=== PATIENT | male | born 1980 | race African-American/Black ===

== ENCOUNTER 2020-04-26 19:10 | Inpatient (IN) | payer OTHER, SELFPAY ==
[2020-04-26] MEDS ORDERED: EPINEPHrine 1 MG/10 ML Abboject SYRINGE ONE (19:15)
[2020-04-26] MEDS ORDERED: Rocuronium Bromide 10 MG/ML (10ML VIAL) ONE (19:15)
[2020-04-26] MEDS ORDERED: Ketamine 50 MG/ML (10ML VIAL) ONE (19:15)
[2020-04-26] MEDS ORDERED: fentaNYL Citrate/PF 2,000 MCG in Sodium Chloride 0.9% 60 ML IV SCH (19:22)
[2020-04-26 19:23] LABS: #Eosinphils 0.1 thou/uL (0.0-0.7); #Lymphocytes 1.5 thou/uL (1.20-3.40); #Monocytes 0.5 thou/uL (0.11-0.59); #Neutrophils 6.1 thou/uL (1.40-6.50); %Basophils 0.4 % (0.0-1.0); %Eosinophils 0.9 % (0.0-10.0); %Lymphocytes 18.4 % (21.0-51.0); %Neutrophils 74.3 % (42.0-75.0); Hemoglobin 15.9 g/dL (14.0-18.0); Mean Corpuscular HGB CONC 33.3 g/dL (32.0-36.0); Mean Corpuscular Hemoglobin 29.9 pg (27.0-31.0); Mean Corpuscular Volume 89.9 fL (78.0-98.0); Mean Platelet Volume 8.6 fL (7.4-10.4); Platelet Count 191 thou/uL (130-400); RBC Distribution Width 12.5 % (11.5-14.5); Red Blood Cell (RBC) Count 5.31 mill/uL (4.70-6.10); White Blood Cell (WBC) Count 8.2 thou/uL (4.8-10.8)
[2020-04-26] MEDS ORDERED: Fentanyl 100 MCG/2 ML VIAL ONE ×2 (19:26→19:32)
[2020-04-26 19:31] LABS: Prothrombin Time 13.5 sec (12.0-14.7)
[2020-04-26 19:32] LABS: PTT 24.6 sec (22.9-36.1)
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
[2020-04-26 19:37] LABS: ALT (SGPT) 30 U/L (8-55); AST (SGOT) 52 U/L (5-34); Albumin 3.9 g/dL (3.5-5.0); Alkaline Phosphatase 98 U/L (40-110); Anion Gap 13 mmol/L (10-20); BUN (Urea Nitrogen) 7 mg/dL (8.9-20.6); Bilirubin, Total 0.7 mg/dL (0.2-1.2); Calc. Creatinine Clearance 0 mL/min (70-130); Carbon Dioxide 25 mmol/L (22-29); Chloride 101 mmol/L (98-107); Estimated GFR-MDRD Greater than 90; Globulin 3.2 g/dL (2.4-3.5); Glucose 117 mg/dL (70-105); Potassium 3.2 mmol/L (3.5-5.1); Protein, Total 7.1 g/dL (6.0-8.3); Sodium 136 mmol/L (136-145)
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
[2020-04-26 20:00] LABS: Bacteria/HPF None Seen HPF (None Seen); Bilirubin Negative (Negative); Blood, Urine Negative (Negative); Clarity Clear (Clear); Glucose, Urine (Dipstick) Normal (Negative); Ketone, Urine Trace mg/dL (Negative); Leukocyte Negative Leu/uL (Negative); Nitrite Negative (Negative); Protein, Urine (Dipstick) 30 mg/dL (Neg-Trace); RBC/HPF 0-3 HPF (0-3); Squamous Epithelial None Seen HPF (0-3); Urobilinogen 3 mg/dL (Less than 2); WBC/HPF 0-3 HPF (0-3); pH, Urine 5.5 (5.0-9.0)
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
[2020-04-26] MEDS ORDERED: Midazolam HCl 2 mg/2 ml Vial ONE (20:10)
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
[2020-04-26 20:14] LABS: Medtox Reader # READER 4; THC/Cannabinoid Screen Not Detected (NotDetected)
[2020-04-26 20:15] LABS: Phencyclidine (PCP) Detected (NotDetected)
[2020-04-26 20:16] LABS: Amphetamine Detected (NotDetected); Barbiturates Screen Not Detected (NotDetected); Benzodiazepine Screen Not Detected (NotDetected); Cocaine Metabolite Screen Not Detected (NotDetected); Medtox Control Line Valid? VALID (VALID); Methadone Not Detected (NotDetected); Methamphetamine Detected (NotDetected); Opiate Screen Not Detected (NotDetected); Oxycodone Screen Not Detected (NotDetected); Tricyclic Screen Not Detected (NotDetected)
[2020-04-26 20:16] LABS: Actual Bicarbonate (HCO3a) 26.3 mEq/L (22-28); Analyzer IN Cardio ER; Base Excess (BEa) 1.9 mEq/L (-2.0 to +3.0); CO2 Tension 40.7 mmHg (35.0-45.0); Calcium, Ionized (arterial) 1.16 mmol/L (1.12-1.30); Carboxyhemoglobin (COHb) 1.8 gm% (0.0-3.0); Hemoglobin (Hb) 15.8 g/dL (14.0-18.0); O2 Tension (PaO2), arterial 256.4 mmHg (80.0-100.0); Potassium - ABG Lab 3.11 mmol/L (3.70-5.30); pH, Arterial 7.43 (7.35-7.45)
[2020-04-26 20:18] LABS: Puncture Site LRA
[2020-04-26 20:19] LABS: ALV-art Gradient 405.725 (0-20)
[2020-04-26] MEDS ORDERED: hydrALAZINE 20 MG/ML VIAL ONE (20:23)
[2020-04-26] MEDS ORDERED: Propofol 1,000 MG/100 ML VIAL IV ONE (20:53)
[2020-04-26] MEDS ORDERED: DISCONTINUE PREVIOUS NARCOTIC PAIN MEDICATIONS AND BENZODIAZEPINES FS SCH (20:55)
[2020-04-26] MEDS ORDERED: Propofol BOLUS 1,000 MG/100 ML VIAL IV PRN (20:55)
[2020-04-26] MEDS ORDERED: Fentanyl BOLUS 250 ML IVPB PRN (20:55)
[2020-04-26] MEDS ORDERED: Morphine 2 MG/ML VIAL SLOW IVP PRN (20:55)
[2020-04-26] MEDS ORDERED: Lorazepam 2 MG/ML VIAL SLOW IVP PRN (20:55)
[2020-04-26] MEDS: Propofol 1,000 MG/100 ML VIAL IV PRN (21:00)
[2020-04-26 21:13] VITALS: BMI 29.8
[2020-04-26] MEDS ORDERED: Ondansetron ODT 4 MG TAB PO PRN (21:32)
[2020-04-26] MEDS ORDERED: Ondansetron PF 4 MG/2 ML Vial IVP PRN (21:32)
[2020-04-26] MEDS ORDERED: Dextrose 5% in Water 1,000 ML IV PRN (21:32)
[2020-04-26] MEDS ORDERED: Dextrose 50% Abboject 50 ML SYRINGE SLOW IVP PRN (21:32)
[2020-04-26] MEDS ORDERED: Ventilator Sedation Protocol 1 EACH FS SCH (21:32)
[2020-04-26] MEDS ORDERED: hydrALAZINE 20 MG/ML VIAL SLOW IVP PRN (21:43)
[2020-04-26] MEDS ORDERED: Famotidine/PF 20 mg/2ml Vial SLOW IVP SCH (21:45)
[2020-04-26] MEDS: Sodium Chloride 0.9% 1,000 ML IV SCH (22:15)
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
[2020-04-26 22:38] LABS: Lactic Acid 1.5 mmol/L (0.5-2.2)
[2020-04-27 03:46] LABS: #Eosinphils 0.1 thou/uL (0.0-0.7); #Lymphocytes 2.8 thou/uL (1.20-3.40); #Monocytes 0.9 thou/uL (0.11-0.59); #Neutrophils 4.1 thou/uL (1.40-6.50); %Basophils 0.4 % (0.0-1.0); %Eosinophils 1.3 % (0.0-10.0); %Lymphocytes 35.4 % (21.0-51.0); %Monocytes 10.8 % (0.0-10.0); %Neutrophils 52.2 % (42.0-75.0); Hemoglobin 15.4 g/dL (14.0-18.0); Mean Corpuscular Hemoglobin 30.3 pg (27.0-31.0); Mean Corpuscular Volume 91.9 fL (78.0-98.0); Mean Platelet Volume 9.6 fL (7.4-10.4); Platelet Count 189 thou/uL (130-400); RBC Distribution Width 12.7 % (11.5-14.5); Red Blood Cell (RBC) Count 5.08 mill/uL (4.70-6.10); White Blood Cell (WBC) Count 7.8 thou/uL (4.8-10.8)
[2020-04-27 03:53] LABS: Anion Gap 17 mmol/L (10-20); BUN (Urea Nitrogen) 7 mg/dL (8.9-20.6); CK (CPK) 1199 U/L (30-200); Calc. Creatinine Clearance 153 mL/min (70-130); Calcium 8.4 mg/dL (7.8-10.44); Carbon Dioxide 18 mmol/L (22-29); Chloride 105 mmol/L (98-107); Estimated GFR-MDRD Greater than 90; Glucose 98 mg/dL (70-105); Magnesium 1.9 mg/dL (1.6-2.6); Potassium 3.6 mmol/L (3.5-5.1); Sodium 136 mmol/L (136-145)
[2020-04-27] MEDS ORDERED: Sodium Chloride 0.9% 500 ML IVPB SCH (04:00)
[2020-04-27] MEDS: Propofol 1,000 MG/100 ML VIAL IV PRN ×3 (05:35→16:56)
[2020-04-27] MEDS: fentaNYL Citrate/PF 2,000 MCG in Sodium Chloride 0.9% 60 ML IV SCH ×2 (06:02→17:01)
[2020-04-27] MEDS: Sodium Chloride 0.9% 1,000 ML IV SCH ×3 (07:00→09:44)
[2020-04-27 07:33] LABS: Actual Bicarbonate (HCO3a) 22.1 mEq/L (22-28); CO2 Tension 32.8 mmHg (35.0-45.0); Calcium, Ionized (arterial) 1.13 mmol/L (1.12-1.30); Carboxyhemoglobin (COHb) 0.3 gm% (0.0-3.0); Hemoglobin (Hb) 14.8 g/dL (14.0-18.0); O2 Tension (PaO2), arterial 93.1 mmHg (80.0-100.0); Potassium - ABG Lab 2.98 mmol/L (3.70-5.30); pH, Arterial 7.45 (7.35-7.45)
[2020-04-27 07:34] LABS: Puncture Site LRA
--- NOTE | 2020-04-27 07:51 | RAD ---
EXAM: Single view of the chest HISTORY: Patient with respiratory failure COMPARISON: 04/26/2020 FINDINGS: Single view of the chest shows a normal sized cardiomediastinal silhouette. The endotrache al tube and NG tube are unchanged in position. There is elevation right hemidiaphragm. There is no evidence of consolidation, mass, or pleural effusion. No acute osseous abnormality. IMPRESSION: Stable exam
[2020-04-27] MEDS: Famotidine/PF 20 mg/2ml Vial SLOW IVP SCH ×2 (08:08→20:36)
[2020-04-27] MEDS ORDERED: CEFAZOLIN 2 GM in Premix Bag 1 BAG IVPB SCH ×2 (08:15→22:15)
[2020-04-27] MEDS ORDERED: Albumin 5% 500 ML ONE (09:29)
[2020-04-27] MEDS ORDERED: PHENYLEPHRINE-NS 100 MCG/ML 10 ML SYRINGE ONE (10:52)
[2020-04-27] MEDS ORDERED: Rocuronium Bromide 10 MG/ML (10ML VIAL) ONE (10:52)
[2020-04-27] MEDS: Lactated Ringer's 1,000 ML IV SCH ×3 (12:58→22:31)
[2020-04-27] MEDS ORDERED: Lactated Ringer's 1,000 ML IV SCH (13:00)
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
[2020-04-27 13:26] LABS: SARS-CoV-2 MS2 Positive; SARS-CoV-2 N Gene Negative; SARS-CoV-2 S Gene Negative; SARS-CoV-2 by NAA Not Detected (NotDetected); SARS-CoV-2 orf1ab Negative
[2020-04-27] MEDS ORDERED: Midazolam HCl 2 mg/2 ml Vial ONE (19:26)
[2020-04-27] MEDS ORDERED: Fentanyl 100 MCG/2 ML VIAL ONE ×2 (19:26→20:10)
--- NOTE | 2020-04-27 21:45 | RAD ---
Exam:Intraoperative fluoroscopy. ORIF. HISTORY: ORIF left femur COMPARISON: None FINDINGS: 5 intraoperative fluoroscopic images demonstrate internal fixation of a left femur fracture . Exposure: 151.4 seconds. 28.8 mGy IMPRESSION: Intraoperative fluoroscopy as above Transcribed Date/Time: 04/27/2020 9:51 PM
[2020-04-28] MEDS: Propofol 1,000 MG/100 ML VIAL IV PRN ×2 (01:24→07:03)
[2020-04-28] MEDS: Lactated Ringer's 1,000 ML IV SCH ×4 (01:25→19:38)
[2020-04-28 03:59] LABS: #Eosinphils 0.1 thou/uL (0.0-0.7); #Lymphocytes 1.5 thou/uL (1.20-3.40); #Monocytes 0.7 thou/uL (0.11-0.59); #Neutrophils 4.4 thou/uL (1.40-6.50); %Basophils 0.3 % (0.0-1.0); %Eosinophils 0.9 % (0.0-10.0); %Lymphocytes 22.5 % (21.0-51.0); %Monocytes 10.2 % (0.0-10.0); %Neutrophils 66.1 % (42.0-75.0); Hemoglobin 13.9 g/dL (14.0-18.0); Mean Corpuscular HGB CONC 32.8 g/dL (32.0-36.0); Mean Corpuscular Volume 91.4 fL (78.0-98.0); Mean Platelet Volume 9.3 fL (7.4-10.4); Platelet Count 152 thou/uL (130-400); RBC Distribution Width 12.5 % (11.5-14.5); Red Blood Cell (RBC) Count 4.63 mill/uL (4.70-6.10); White Blood Cell (WBC) Count 6.7 thou/uL (4.8-10.8)
[2020-04-28 05:19] LABS: Anion Gap 13 mmol/L (10-20); BUN (Urea Nitrogen) 5 mg/dL (8.9-20.6); Calc. Creatinine Clearance 171 mL/min (70-130); Calcium 7.9 mg/dL (7.8-10.44); Carbon Dioxide 23 mmol/L (22-29); Chloride 104 mmol/L (98-107); Estimated GFR-MDRD Greater than 90; Glucose 94 mg/dL (70-105); Potassium 3.5 mmol/L (3.5-5.1); Sodium 136 mmol/L (136-145)
[2020-04-28] MEDS: CEFAZOLIN 2 GM in Premix Bag 1 BAG IVPB SCH ×3 (05:21→21:51)
[2020-04-28] MEDS: fentaNYL Citrate/PF 2,000 MCG in Sodium Chloride 0.9% 60 ML IV SCH (06:25)
[2020-04-28] MEDS: Famotidine/PF 20 mg/2ml Vial SLOW IVP SCH ×2 (08:50→19:38)
[2020-04-28] MEDS: Furosemide 20 MG/2 ML VIAL SLOW IVP SCH ×2 (08:50→17:45)
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
[2020-04-28] MEDS ORDERED: traMADol HCl 50 MG TAB PO PRN ×2 (18:29)
[2020-04-28] MEDS ORDERED: Cyclobenzaprine 10 MG TAB PO PRN (18:29)
[2020-04-28] MEDS: Ibuprofen 600 MG TAB PO SCH (19:37)
[2020-04-28] MEDS: Acetaminophen 500 MG TAB PO SCH (19:38)
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
[2020-04-29] MEDS: Acetaminophen 500 MG TAB PO SCH ×5 (00:55→23:33)
[2020-04-29] MEDS: Furosemide 20 MG/2 ML VIAL SLOW IVP SCH (00:55)
[2020-04-29] MEDS: Ibuprofen 600 MG TAB PO SCH ×3 (02:44→18:40)
[2020-04-29 03:58] LABS: #Eosinphils 0.2 thou/uL (0.0-0.7); #Lymphocytes 1.2 thou/uL (1.20-3.40); #Monocytes 0.3 thou/uL (0.11-0.59); #Neutrophils 4.4 thou/uL (1.40-6.50); %Basophils 0.2 % (0.0-1.0); %Eosinophils 2.6 % (0.0-10.0); %Lymphocytes 19.5 % (21.0-51.0); %Monocytes 5.6 % (0.0-10.0); %Neutrophils 72.1 % (42.0-75.0); Hemoglobin 13.2 g/dL (14.0-18.0); Mean Corpuscular HGB CONC 33.2 g/dL (32.0-36.0); Mean Corpuscular Hemoglobin 29.8 pg (27.0-31.0); Mean Corpuscular Volume 89.8 fL (78.0-98.0); Mean Platelet Volume 9.5 fL (7.4-10.4); Platelet Count 143 thou/uL (130-400); RBC Distribution Width 12.1 % (11.5-14.5); Red Blood Cell (RBC) Count 4.42 mill/uL (4.70-6.10); White Blood Cell (WBC) Count 6.1 thou/uL (4.8-10.8)
[2020-04-29 04:09] LABS: Anion Gap 11 mmol/L (10-20); BUN (Urea Nitrogen) 8 mg/dL (8.9-20.6); CK (CPK) 1943 U/L (30-200); Calc. Creatinine Clearance 127 mL/min (70-130); Carbon Dioxide 31 mmol/L (22-29); Chloride 99 mmol/L (98-107); Estimated GFR-MDRD Greater than 90; Glucose 108 mg/dL (70-105); Magnesium 1.8 mg/dL (1.6-2.6); Phosphorus 2.6 mg/dL (2.3-4.7); Potassium 3.2 mmol/L (3.5-5.1); Sodium 138 mmol/L (136-145)
[2020-04-29] MEDS ORDERED: Magnesium Sulfate 3 GM in Sodium Chloride 0.9% 250 ML 250 ML IVPB SCH (05:45)
[2020-04-29] MEDS ORDERED: Potassium Phosphate 30 MMOL in Sodium Chloride 0.9% 250 ML 250 ML IVPB SCH (05:45)
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
[2020-04-29] MEDS: Famotidine/PF 20 mg/2ml Vial SLOW IVP SCH ×2 (09:59→20:17)
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
[2020-04-29] MEDS: Senokot S 8.6-50 MG TAB PO SCH (20:17)
[2020-04-30] MEDS: Ibuprofen 600 MG TAB PO SCH ×2 (03:04→10:01)
[2020-04-30] MEDS: Acetaminophen 500 MG TAB PO SCH ×2 (06:00→11:55)
[2020-04-30 07:52] VITALS: BP 141/86; TEMP 98.2
[2020-04-30] MEDS: Famotidine/PF 20 mg/2ml Vial SLOW IVP SCH (08:12)
[2020-04-30] MEDS: Senokot S 8.6-50 MG TAB PO SCH (08:12)
[2020-04-30] MEDS ORDERED: Enoxaparin Sodium 40 MG/0.4 ML SYRINGE SC SCH (09:00)
[2020-04-30] MEDS ORDERED: Polyethylene Glycol 3350 17 GM Packet PO SCH (09:00)
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
== END 2020-04-30 15:00 | disposition home or self-care (01) | DRG 956 ==
LOC: ERS 19:10 → CCU 19:20 → SURG A 04-29 12:05
PROVIDERS: ADMIT Surgery; ATTEND Surgery
PROC: 0BH17EZ Insertion of Endotracheal Airway into Trachea, Via Natural or Artificial Opening (ICD-10-PCS; 2020-04-26)
PROC: 0QS906Z Reposition Left Femoral Shaft with Intramedullary Internal Fixation Device, Open Approach (ICD-10-PCS; principal; 2020-04-27)
DX: S72.322A Displaced transverse fracture of shaft of left femur, initial encounter for closed fracture (principal); T79.6XXA Traumatic ischemia of muscle, initial encounter; J96.00 Acute respiratory failure, unspecified whether with hypoxia or hypercapnia; E87.2 Acidosis; S27.322A Contusion of lung, bilateral, initial encounter; I10 Essential (primary) hypertension; E78.5 Hyperlipidemia, unspecified; H54.40 Blindness, one eye, unspecified eye; Z20.828 Contact with and (suspected) exposure to other viral communicable diseases; F15.10 Other stimulant abuse, uncomplicated; S06.0X0A Concussion without loss of consciousness, initial encounter; E87.6 Hypokalemia; V29.49XA Motorcycle driver injured in collision with other motor vehicles in traffic accident, initial encounter; E83.42 Hypomagnesemia; R40.2352 Coma scale, best motor response, localizes pain, at arrival to emergency department; R40.2142 Coma scale, eyes open, spontaneous, at arrival to emergency department; R40.2242 Coma scale, best verbal response, confused conversation, at arrival to emergency department; Z88.0 Allergy status to penicillin; Z98.890 Other specified postprocedural states; Y93.89 Activity, other specified; Y99.8 Other external cause status
CPT/HCPCS: 31500; 36415; 36416; 51702; 70450; 71045; 71260; 72125; 72170; 74177; 76000; 80048; 80053; 80306; 81001; 82550; 82805; 83605; 83735; 84100; 85025; 85610; 85730; 86850; 86900; 86901; 87635; 94002; 94003; 94640; 96365; 96375; 96376; 99292; C1713; G0390; J0171; J0360; J0690; J1650; J1940; J2250; J2704; J3010; J3475; J3490; J7030; J7050; J7620; P9045; S0028; U0003